=== PATIENT | female | born 1995 | race Caucasian/White ===

== ENCOUNTER → 2016-03-13 | Outpatient (REF) | payer OTHER ==
[~2016-03-13] MED LIST: IBUP600T26 PO
== END | disposition home or self-care (01) ==
LOC: M SFHCLERA 11:49
PROVIDERS: ATTEND Nurse Practitioner Family
DX: J02.9 Acute pharyngitis, unspecified (principal)

== ENCOUNTER → 2017-03-06 | Outpatient (REF) | payer OTHER | LOC: M SFHCLERA 10:00 | DX: J02.9 Acute pharyngitis, unspecified (principal) ==

== ENCOUNTER → 2017-08-19 | Outpatient (REF) | payer OTHER | LOC: M SFHCLERA 18:23 | DX: J02.9 Acute pharyngitis, unspecified (principal) ==

== ENCOUNTER → 2018-06-15 | Outpatient (REF) | payer OTHER | LOC: M SFHCLERA 15:35 | PROVIDERS: ATTEND Physician Assistant | DX: J02.9 Acute pharyngitis, unspecified (principal) ==

== ENCOUNTER → 2018-09-10 | Outpatient (CLI) | payer OTHER ==
--- NOTE | 2018-09-10 19:15 | REP ---
Clinical: Trauma. Technique: AP, lateral, bilateral oblique views of the right ankle. Findings: Lateral swelling consist with inversion injury. No acute fracture or dislocation. Ankle mortise intact. No subcutaneous emphysema or radiodense foreign body. Impression: Lateral swelling. No acute fracture. Electronically Signed by Jeremy Nazario MD 09/10/2018 07:06 P
--- NOTE | 2018-09-10 19:16 | REP ---
Clinical: Trauma. Technique: AP, lateral, bilateral oblique views right foot . Findings: The osseous structures and joint spaces are intact and normal. There is no evidence for acute fracture or dislocation. Surrounding soft tissues are unremarkable. No subcutaneous emphysema or radiodense foreign body. Impression: No acute fracture or dislocation. Electronically Signed by Jeremy Nazario MD 09/10/2018 07:07 P
== END ==
LOC: M LRY 18:25
PROVIDERS: ATTEND Physician Assistant Medical
DX: M79.671 Pain in right foot (principal)

== ENCOUNTER → 2018-12-24 | Outpatient (REF) | payer OTHER ==
[2018-12-24 22:04] LABS: CHLAMYDIA DNA AMPLIFICATION NEGATIVE (NEGATIVE); GC DNA AMPLIFICATION NEGATIVE (NEGATIVE)
== END ==
LOC: M SFHCLERA 16:58
PROVIDERS: ATTEND Nurse Practitioner Family
DX: R30.0 Dysuria (principal)

== ENCOUNTER 2019-01-18 02:18 | Emergency (ER) | payer OTHER, SELFPAY ==
[2019-01-18] MEDS ORDERED: SPRI28TA PO (02:37)
[2019-01-18] MEDS ORDERED: VENTAER INH (02:37)
[2019-01-18 03:00] VITALS: BP 129/62
== END 2019-01-18 03:44 | disposition home or self-care (01) ==
LOC: M ED 02:18
DX: F10.120 Alcohol abuse with intoxication, uncomplicated (principal); F41.1 Generalized anxiety disorder; R06.4 Hyperventilation; J45.909 Unspecified asthma, uncomplicated; Z88.2 Allergy status to sulfonamides; Z88.8 Allergy status to other drugs, medicaments and biological substances; Z88.0 Allergy status to penicillin; Z79.3 Long term (current) use of hormonal contraceptives

== ENCOUNTER 2021-12-17 09:53 | Emergency (ER) | payer OTHER ==
[~2021-12-17] VITALS: Ht 154.9 cm; Wt 75.9 kg
[~2021-12-17 09:53] MED LIST changes: +SPRI28TA PO; +VENTAER INH
[2021-12-17] MEDS ORDERED: IBUP-1022 PO (10:32)
[2021-12-17] MEDS ORDERED: IBUPROFEN 600MG TAB PO ONE (10:35)
[2021-12-17] MEDS ORDERED: ACETAMINOPHEN 325 MG TAB PO ONE (10:35)
[2021-12-17] MEDS ORDERED: ONDANSETRON 4MG 2ML VIAL IV ONE (10:45)
[2021-12-17 12:02] VITALS: BP 135/92
== END 2021-12-17 12:07 | disposition home or self-care (01) ==
LOC: EDBD 09:53 → M ED 09:53
DX: U07.1 COVID-19 (principal); R00.0 Tachycardia, unspecified; G43.909 Migraine, unspecified, not intractable, without status migrainosus; F41.9 Anxiety disorder, unspecified; F32.A Depression, unspecified; Z88.1 Allergy status to other antibiotic agents; Z88.2 Allergy status to sulfonamides; Z88.8 Allergy status to other drugs, medicaments and biological substances
CPT/HCPCS: 71045; 87486; 87581; 87633; 87798; 93005; 96374; 99284; J2405

== ENCOUNTER 2023-03-15 12:22 | Day surgery (SDC) | payer OTHER ==
[~2023-03-15] VITALS: Ht 154.9 cm; Wt 78.9 kg
[~2023-03-15 12:22] MED LIST changes: +IBUP-1022 PO; +LIDOCAINE 2% 100MG/5ML SDV (FOR ANES.) As Ordered ONE; +METOCLOPRAMIDE INJ 10MG/2ML VIAL As Ordered ONE; +MIDAZOLAM INJ 2MG/2ML VIAL As Ordered ONE; +MOME13HF7 INH; +ONDANSETRON 4MG 2ML VIAL As Ordered ONE; +PROBCAP14 PO; +[UNRECOGNIZED DRUG - CODE] PO; +dexmedeTOMIDine (4MCG/ML)200MCG/50ML BTL (PRECEDEX) As Ordered ONE; +fentaNYL 100 MCG/2 ML INJECTION As Ordered ONE; +propofoL 200 MG/20 ML VIAL As Ordered ONE
[2023-03-15] MEDS ORDERED: ACETAMINOPHEN 1000MG 100ML IV BAG As Ordered ONE (13:17)
[2023-03-15] MEDS ORDERED: fentaNYL 100 MCG/2 ML INJECTION As Ordered ONE (13:53)
[2023-03-15] MEDS ORDERED: ALBUTEROL 6.7GM INHALER **FOR ANES. CART/OMNICELL ONLY As Ordered ONE (13:56)
[2023-03-15] MEDS ORDERED: LR 1,000 ML IV SCH (14:35)
[2023-03-15] MEDS ORDERED: HYDROcodone/APAP LIQUID 7.5-325MG 15ML UDC (LORTAB ELIXIR) PO PRN (14:35)
[2023-03-15 15:22] VITALS: BP 126/74; TEMP 97.4; O2SAT 98
== END 2023-03-15 15:37 | disposition home or self-care (01) ==
LOC: M SDC 12:22
PROVIDERS: ATTEND Otolaryngology
DX: J35.01 Chronic tonsillitis (principal); J35.8 Other chronic diseases of tonsils and adenoids; J45.909 Unspecified asthma, uncomplicated; R06.83 Snoring; Z91.040 Latex allergy status; Z88.1 Allergy status to other antibiotic agents; Z88.2 Allergy status to sulfonamides; Z88.8 Allergy status to other drugs, medicaments and biological substances; Z79.899 Other long term (current) drug therapy; Z79.51 Long term (current) use of inhaled steroids
CPT/HCPCS: 42826; 81025; 88302; J0131; J0665; J1100; J2250; J2405; J2765; J3010